=== PATIENT | male | born 1955 | race African-American/Black ===

== ENCOUNTER 2016-12-01 11:43 | Outpatient (CLI) | payer OTHER ==
[2016-12-01 13:00] LABS: #Eosinphils 0.2 thou/uL (0.0-0.7); #Lymphocytes 2.6 thou/uL (1.20-3.40); #Monocytes 0.7 thou/uL (0.11-0.59); #Neutrophils 3.7 thou/uL (1.40-6.50); %Basophils 0.6 % (0.0-1.0); %Eosinophils 2.4 % (0.0-10.0); %Lymphocytes 36.1 % (21.0-51.0); %Monocytes 9.4 % (0.0-10.0); Hematocrit 46.3 % (42.0-52.0); Mean Platelet Volume 7.6 fL (7.4-10.4); Red Blood Cell (RBC) Count 5.63 mill/uL (4.70-6.10); White Blood Cell (WBC) Count 7.1 thou/uL (4.8-10.8)
[2016-12-01 13:20] LABS: ALT (SGPT) 23 U/L (8-55); AST (SGOT) 20 U/L (5-34); Alkaline Phosphatase 73 U/L (40-150); Anion Gap 13 mmol/L (10-20); BUN (Urea Nitrogen) 14 mg/dL (8.4-25.7); Bilirubin, Direct 0.3 mg/dL (0.1-0.3); Bilirubin, Total 0.5 mg/dL (0.2-1.2); Calc. Creatinine Clearance 0 mL/min (70-130); Calcium 9.8 mg/dL (7.8-10.44); Carbon Dioxide 24 mmol/L (22-29); Chloride 106 mmol/L (98-107); Estimated GFR-MDRD 85; Protein, Total 8.3 g/dL (6.0-8.3)
--- NOTE | 2016-12-04 06:46 | EKG ---
Test Reason : Blood Pressure : / mmHG Vent. Rate : 048 BPM Atrial Rate : 048 BPM P-R Int : 172 ms QRS Dur : 124 ms QT Int : 438 ms P-R-T Axes : 056 077 058 degrees QTc Int : 391 ms Marked sinus bradycardia Non-specific intra-ventricular conduction delay Abnormal ECG No previous ECGs available Confirmed by RICARDO VENEGAS ([id number]) on 12/04/2016 6:46:08 AM Referred By: BRIANA Confirmed By:RICARDO VENEGAS
== END 2016-12-01 11:44 | disposition home or self-care (01) ==
LOC: LABBT 11:43
PROVIDERS: ATTEND Surgery
DX: Z01.818 Encounter for other preprocedural examination (principal); K80.20 Calculus of gallbladder without cholecystitis without obstruction
CPT/HCPCS: 80048; 80076; 85025; 93005; 93010